=== PATIENT | male | born 1995 | race American Indian/Alaskan Native ===

== ENCOUNTER 2017-02-28 02:15 | Emergency (ER) | payer OTHER ==
[2017-02-28] MEDS ORDERED: DUONEB 0.5 MG-3 MG/3 ML SOLN IH ONE (02:34)
[2017-02-28 03:12] LABS: Basophils % (Auto) 0.4 % (0.0-1.8); Hematocrit 45.2 % (35.5-45.6); Hemoglobin 15.6 gm/dl (11.8-15.2); Mean Corpuscular HGB Conc 35 % (32-34); Mean Corpuscular Hemoglobin 31 pg (28-32); Mean Corpuscular Volume 90 fl (84-94); Platelet Count 206 K/mm3 (140-440); Red Blood Count 5.04 M/mm3 (3.65-5.03); White Blood Count 8.7 K/mm3 (4.5-11.0)
[2017-02-28 03:14] LABS: Anion Gap 18 mmol/L; Blood Urea Nitrogen 8 mg/dL (9-20); Calcium 9.7 mg/dL (8.4-10.2); Carbon Dioxide 25 mmol/L (22-30); Chloride 99.8 mmol/L (98-107); Glucose 108 mg/dL (75-100); Potassium 4.3 mmol/L (3.6-5.0); Sodium 138 mmol/L (137-145)
--- NOTE | 2017-02-28 07:48 | XRay Report ---
ROUTINE CHEST, TWO VIEWS: HISTORY: Shortness of breath. The trachea, heart, mediastinal contour, lung santana and bony thorax are unremarkable. IMPRESSION: Unremarkable chest x-ray.
--- NOTE | 2017-02-28 11:14 | Emergency Department Report ---
ED Shortness of Breath HPI - General Chief Complaint: Chest Pain Stated Complaint: DIFFICULTY BREATHING Time Seen by Provider: 02/28/17 10:20 Source: patient Mode of arrival: Ambulatory Limitations: No Limitations - History of Present Illness MD Complaint: shortness of breath, cough, chest pain, "asthma attack" -: Gradual, days(s) Radiation: other Severity: mild Pain Scale: 1 Quality: sharp Consistency: intermittent Improves With: nothing Worsens With: nothing Known History Of: asthma Context: recent URI, recent illness Associated Symptoms: chest pain, cough, other (wheezing) - Related Data Previous Rx's Medication Instructions Recorded Last Taken Type ALBUTEROL Inhaler [ProAir HFA 2 puff IH QID PRN #2 inhalation 02/28/17 Unknown Rx Inhaler] Ibuprofen [Motrin] 800 mg PO Q8HR #9 tablet 02/28/17 Unknown Rx predniSONE [Deltasone] 50 mg PO QDAY #5 tab 02/28/17 Unknown Rx Allergies Allergy/AdvReac Type Severity Reaction Status Date / Time No Known Allergies Allergy Verified 02/28/17 02:27 ED Review of Systems ROS: Stated complaint: DIFFICULTY BREATHING Other details as noted in HPI Other: GENERAL: No weight change, fatigue, weakness, fever, chills, or night sweats SKIN: No changes in skin or hair, no itching, no rashes, no jaundice HEAD: No trauma, headache, or visual changes EYES: No blurriness, tearing, itching, acute visual loss, conjunctival discoloration, or scleral icterus EARS: No hearing loss, tinnitus, vertigo, or earache NOSE: No rhinorrhea, stuffiness, sneezing, itching, or epistaxis MOUTH: No bleeding gums, hoarseness, sore throat, or swelling CARDIAC: Chest Pain, No new murmur, palpitations, dyspnea on exertion, orthopnea , PND, or edema RESPIRATORY: shortness of breath, wheeze, cough GI: No change in appetite, nausea, vomiting, dysphagia, change in bowel frequency, diarrhea, constipation, bleeding, hematemesis, melena, hematochezia, or abdominal pain URINARY: No frequency, urgency, polyuria, dysuria, hematuria, or incontinence MUSCULOSKELETAL: No muscle weakness, joint stiffness, decrease in range of motion, redness, swelling, tenderness NEUROLOGIC: No loss of sensation, numbness, tingling, tremors, weakness, paralysis, seizures HEMATOLOGIC: No anemia, easy bruising, bleeding, petechiae, or purpura ENDOCRINE: No hot or cold intolerance, sweating, polyuria, polydipsia or, polyphagia no thyroid problems PSYCHIATRIC: No change in mood, no anxiety, no depression ED Past Medical Hx - Past Medical History Previous Medical History?: No - Surgical History Past Surgical History?: No - Social History Smoking Status: Never Smoker Substance Use Type: None - Medications Home Medications: Home Medications Medication Instructions Recorded Confirmed Last Taken Type ALBUTEROL Inhaler [ProAir HFA 2 puff IH QID PRN #2 inhalation 02/28/17 Unknown Rx Inhaler] Ibuprofen [Motrin] 800 mg PO Q8HR #9 tablet 02/28/17 Unknown Rx predniSONE [Deltasone] 50 mg PO QDAY #5 tab 02/28/17 Unknown Rx ED Physical Exam - General Limitations: No Limitations - Other Other exam information: GENERAL: Patient in no acute distress HEAD: Normocephalic, atraumatic EYES: PERRLA, EOM intact, no scleral icterus, no papilledema, no conjunctival hemorrhage, visual santana and acuity wnl, NOSE: No tenderness, discharge, sinus tenderness MOUTH: No erythema, bleeding, exudate HEART: Regular rate and rhythm, no murmur, S1-S2 are auscultated, pulses are symmetric LUNGS: wheezing mild, bilateral breath sounds ABDOMEN: Normal bowel sounds, no tenderness, no rebound, no guarding, no masses , no CVA tenderness MUSCULOSKELETAL: Normal joint range of motion, no redness, no swelling, no tenderness NEUROLOGIC: GCS 15, Alert and Oriented x3, Cranial nerves intact, normal sensation, normal strength, normal gait, no cerebellar deficit PSYCHIATRIC: No homicidal or suicidal ideation, no anxiety, no depression, no hallucinations SKIN: Skin is warm and dry, no wounds, no rashes ED Course Vital Signs 02/28/17 02/28/17 02/28/17 02:29 09:15 09:21 Temperature 98.8 F Pulse Rate 115 H 104 H 99 H Pulse Rate [ Posterior Bilateral Lower Lobe] Respiratory 30 H 28 H Rate Respiratory Rate [Posterior Bilateral Lower Lobe] Blood Pressure 144/85 150/95 O2 Sat by Pulse 97 95 Oximetry 02/28/17 02/28/17 02/28/17 09:26 09:30 09:41 Temperature Pulse Rate 95 H 88 Pulse Rate [ Posterior Bilateral Lower Lobe] Respiratory 20 27 H 24 Rate Respiratory Rate [Posterior Bilateral Lower Lobe] Blood Pressure 137/86 137/86 O2 Sat by Pulse 96 94 Oximetry 02/28/17 02/28/17 02/28/17 09:51 09:56 10:00 Temperature Pulse Rate 104 H 101 H Pulse Rate [ 100 H Posterior Bilateral Lower Lobe] Respiratory 24 19 Rate Respiratory 20 Rate [Posterior Bilateral Lower Lobe] Blood Pressure 130/75 127/83 O2 Sat by Pulse 94 100 Oximetry 02/28/17 02/28/17 02/28/17 10:03 10:11 10:21 Temperature Pulse Rate 104 H 86 Pulse Rate [ 102 H Posterior Bilateral Lower Lobe] Respiratory 23 22 Rate Respiratory 18 Rate [Posterior Bilateral Lower Lobe] Blood Pressure 127/83 129/81 O2 Sat by Pulse 96 94 Oximetry 02/28/17 02/28/17 02/28/17 10:30 10:41 10:51 Temperature Pulse Rate 86 86 70 Pulse Rate [ Posterior Bilateral Lower Lobe] Respiratory 21 21 21 Rate Respiratory Rate [Posterior Bilateral Lower Lobe] Blood Pressure 125/76 125/76 134/85 O2 Sat by Pulse 94 94 95 Oximetry 02/28/17 11:00 Temperature Pulse Rate 100 H Pulse Rate [ Posterior Bilateral Lower Lobe] Respiratory 22 Rate Respiratory Rate [Posterior Bilateral Lower Lobe] Blood Pressure 139/79 O2 Sat by Pulse 89 Oximetry ED Medical Decision Making - Lab Data Result diagrams: 02/28/17 02:36 02/28/17 02:36 - EKG Data When compared to previous EKG there are: changes noted - Radiology Data Radiology results: report reviewed - Medical Decision Making At 1105 Dr. Moore [phone] reports no acute intervention. Recommends Cardiology consult, and echo. At [facility] soup person midlevel agrees to eval. Request admit to hospitalists with Dr. Jailene Torres cardiology on consult. At 1150 Dr. Jailene Torres reviewed the echo and reports that it is normal. Reports the patient can be discharged with motrin. Patient comfortable. Updated with results. Plan discharge with outpatient follow-up. Patient agrees with plan and will return if symptoms worsen. Critical care attestation.: If time is entered above; I have spent that time in minutes in the direct care of this critically ill patient, excluding procedure time. ED Disposition Clinical Impression: Bronchospasm Acute pericarditis Qualifiers: Pericarditis type: unspecified type Qualified Code(s): I30.9 - Acute pericarditis, unspecified Dyspnea Qualifiers: Dyspnea type: unspecified Qualified Code(s): R06.00 - Dyspnea, unspecified Disposition: DISCHARGED TO HOME OR SELFCARE Is pt being admited?: No Condition: Stable Instructions: Acute Pericarditis (ED), Bronchospasm (ED) Prescriptions: ALBUTEROL Inhaler [ProAir HFA Inhaler] 2 puff IH QID PRN #2 inhalation PRN Reason: Shortness Of Breath Ibuprofen [Motrin] 800 mg PO Q8HR #9 tablet predniSONE [Deltasone] 50 mg PO QDAY #5 tab Referrals: PRIMARY CARE, [Primary Care Provider] - 2-3 Days RM TORRES MD [Staff Physician] - 3-5 Days Time of Disposition: 13:12
[2017-02-28 11:15] VITALS: BP 139/79
[2017-02-28] MEDS ORDERED: NACL 0.9% 1000 ML 2,000 ML IV ONE (11:20)
[2017-02-28] MEDS ORDERED: BABY ASPIRIN PO ONE (11:20)
--- NOTE | 2017-02-28 11:37 | Consultation ---
History of Present Illness Consult date: 02/28/17 Requesting physician: CORKY GARCIA Consult reason: shortness of breath History of present illness: The patient is a 21-year-old male with a past medical history significant for asthma. He is previously unknown to our practice. He presented with complaints of shortness of breath and chest pain with deep inspiration 2 days prior to admission. He reports that he has had a "cold" with nasal congestion and nonproductive cough for the past 3 days. He describes his chest pain as a precordial stabbing pain which is aggravated by deep inspiration and lying flat and alleviated by sitting upright. He denies any palpitations, nausea, vomiting , fever, chills, diaphoresis, dizziness or syncope. Past History Past Medical History: other (asthma ) Past Surgical History: No surgical history Social history: denies: smoking, alcohol abuse, prescription drug abuse Medications and Allergies Allergies Allergy/AdvReac Type Severity Reaction Status Date / Time No Known Allergies Allergy Verified 02/28/17 02:27 Home Medications Medication Instructions Recorded Confirmed Last Taken Type No Known Home Medications [No 02/28/17 02/28/17 Unknown History Reported Home Medications] Review of Systems All systems: negative Cardiovascular: chest pain, shortness of breath, dyspnea on exertion, no orthopnea, no palpitations, no rapid/irregular heart beat, no edema, no syncope , no lightheadedness, no paroxysmal nocturnal dyspnea, no high blood pressure, no leg edema, no decreased exercise tolerance Respiratory: cough, shortness of breath, dyspnea on exertion, congestion, pain on inspiration, no cough with sputum, no wheezing Physical Examination Vital Signs Temp Pulse BP Pulse Ox 98.8 F 115 H 144/85 97 02/28/17 02:29 02/28/17 02:29 02/28/17 02:29 02/28/17 02:29 General appearance: no acute distress HEENT: Positive: PERRL, Normocephaly, Mucus Membranes Moist Neck: Positive: neck supple, trachea midline Cardiac: Positive: Reg Rate and Rhythm, S1/S2 Lungs: Positive: Normal Exam, clear to auscultation, Normal Breath Sounds Neuro: Positive: Grossly Intact, Cranial Nerve 2-12 Intact Abdomen: Positive: Unremarkable, Soft, Active Bowel Sounds. Negative: Tender Skin: Positive: Clear. Negative: Rash, Wound Musculoskeletal: No Fluid Collection, No Pain, Normal Range of Motion Extremities: Present: normal, upper extr. pulses, lower extr. pulses Results 02/28/17 02:36 02/28/17 02:36 CBC 02/28/17 Range/Units 02:36 WBC 8.7 (4.5-11.0) K/mm3 RBC 5.04 H (3.65-5.03) M/mm3 Hgb 15.6 H (11.8-15.2) gm/dl Hct 45.2 (35.5-45.6) % Plt Count 206 (140-440) K/mm3 Lymph # 1.8 (1.2-5.4) K/mm3 Baca # 1.0 H (0.0-0.8) K/mm3 Eos # 0.3 (0.0-0.4) K/mm3 Baso # 0.0 (0.0-0.1) K/mm3 Comprehensive Metabolic Panel 02/28/17 Range/Units 02:36 Sodium 138 (137-145) mmol/L Potassium 4.3 (3.6-5.0) mmol/L Chloride 99.8 (98-107) mmol/L Carbon Dioxide 25 (22-30) mmol/L BUN 8 L (9-20) mg/dL Creatinine 1.0 (0.8-1.5) mg/dL Glucose 108 H (75-100) mg/dL Calcium 9.7 (8.4-10.2) mg/dL - Imaging and Cardiology Echo: pending EKG: report reviewed, image reviewed EKG interpretations - Telemetry EKG Rhythm: Sinus Rhythm - EKG Sinus rhythms and dysrhythmias: sinus tachycardia Repolarization changes or abnormalities: acute pericarditis Assessment and Plan Assessment: Acute pleuropericarditis - in setting of recent most likely viral infection per pt report. Abnormal ECG - secondary to acute pleuropericarditis. H/o asthma Plan: Echo reviewed with NAF, EF 60%. Currently stable cardiac status, pt may discharge home from cardiology standpoint. Recommend addition of NSAIDS (motrin 800mg BID x 3 days) upon discharge. Follow up in our office PRN ([phone]). Assessment and plan reviewed with pt at bedside. The patient has been seen in conjunction with Dr. Tapia who agrees with the assessment and plan of care.
== END 2017-02-28 13:34 | disposition home or self-care (01) ==
LOC: ED 02:15
DX: I30.9 Acute pericarditis, unspecified (principal); J98.01 Acute bronchospasm; R06.00 Dyspnea, unspecified
CPT/HCPCS: 36415; 71020; 80048; 84484; 85025; 85379; 93005; 93010; 93306; 94640; 99284; J7030